=== PATIENT | female | born 1950 | race Caucasian/White ===

== ENCOUNTER → 2017-03-21 | Day surgery (SDC) | payer MEDICARE ==
[~2017-03-21] MED LIST: AMBI5TAB; ATOR10 PO; BENT20TA OR; FLUO20SO3 PO; LACTATED RINGER'S 1000 ML INJ 1,000 ML ONE; LANTUSP SQ; LORT7.5T3 PO; LOSA25TA31 PO; NOVALOG INSULIN; PIOG30 PO; PROPOFOL 500 MG/50 ML BTL IV ONE; RANI150 PO; SUCR1TAB PO; SYNT25TA PO; TRAM50 PO
--- NOTE | 2017-03-21 13:33 | GIPROC ---
[facility] [address] [facility], [address] EGD PROCEDURE REPORT EXAM DATE: 03/21/2017 PATIENT NAME: Sienna Phan MR #: [id number] BIRTHDATE: 1950 ATTENDING: Alexander Patton MD ORDER #: [id number] TAKER OFF: Tamara Land RN STATUS: outpatient INDICATIONS: The patient is a 66 yr old female here for an EGD due to dysphagia PROCEDURE PERFORMED: EGD w/ biopsy MEDICATIONS: None, Per Anesthesia, None, and Per Anesthesia. TOPICAL ANESTHETIC: CONSENT: The patient understands the risks and benefits of the procedure and understands that these risks include, but are not limited to: sedation, allergic reaction, infection, perforation and/or bleeding. Alternative means of evaluation and treatment include, among others: physical exam, x-rays, and/or surgical intervention. The patient elects to proceed with this endoscopic procedure. medical equipment was checked for proper function. Hand hygiene and appropriate measures for infection prevention was taken. After the risks, benefits and alternatives of the procedure were thoroughly explained, Informed consent was verified, confirmed and timeout was successfully executed by the treatment team. The patient was anesthetized with topical anesthesia and the EC-[id number] ([id number]) endoscope was introduced through the mouth and advanced to the second portion of the duodenum. Retroflexed views revealed no abnormalities The gastroscope was then slowly withdrawn and removed. ESOPHAGUS: There was a short benign appearing and peptic stricture at the gastroesophageal junction. The stricture was traversable with resistance. The stricture was dilated using a 15mm (45Fr) savary dilator over guidewire. Following this dilation, there was a small mucosal rent. A diffuse patch of abnormal mucosa was found in the distal esophagus. Exudate probable meghan, this was biopsied. The endoscopy was otherwise normal. STOMACH: A medium sized hiatal hernia was noted. There was mild gastritis in the gastric antrum. Multiple biopsies were performed. ADVERSE EVENTS: There were no complications. IMPRESSIONS: 1. There was a short stricture at the gastroesophageal junction; The stricture was dilated using a 15mm (45Fr) savary dilator over guidewire.; Following this dilation, there was a small mucosal rent 2. Diffuse abnormal mucosa was found in the distal esophagus 3. Normal endoscopy otherwise 4. Medium sized hiatal hernia 5. There was mild gastritis in the gastric antrum; multiple biopsies were performed 6. Retroflexed views revealed no abnormalities RECOMMENDATIONS: 1. Await biopsy results. Biopsy results will not be ready for 7-10 days. If you don't hear from us in two weeks, call our office for biopsy results. 2. Continue PPI 3. Follow-up: GI clinic 4 week(s) PATIENT CONDITION: stable DISPOSITION: Home REPEAT EXAM: Alexander Patton MD eSigned: Alexander Patton MD 03/21/2017 1:33 PM cc: Theodore Nathan [facility] PATIENT NAME: Sienna Phan MR#: [id number]
== END | disposition home or self-care (01) ==
LOC: ESDC 11:50
PROVIDERS: ATTEND Internal Medicine Gastroenterology
DX: R13.10 Dysphagia, unspecified (principal); K22.2 Esophageal obstruction; K44.9 Diaphragmatic hernia without obstruction or gangrene; K29.70 Gastritis, unspecified, without bleeding
CPT/HCPCS: 00740; 43239; 43248; 88305; J7120; 88312